=== PATIENT | male | born 1970 | race Hispanic/Latino ===

== ENCOUNTER 2017-05-10 20:42 | Emergency (ER) | payer BC ==
[2017-05-10 21:34] LABS: RAPID GROUP A STREP NEGATIVE (NEGATIVE)
== END 2017-05-10 21:57 | disposition home or self-care (01) ==
LOC: EDH 20:42
DX: J10.1 Influenza due to other identified influenza virus with other respiratory manifestations (principal); I10 Essential (primary) hypertension; M06.9 Rheumatoid arthritis, unspecified; E07.9 Disorder of thyroid, unspecified
CPT/HCPCS: 87804; 87880

== ENCOUNTER 2018-07-06 16:38 | Inpatient (IN) | payer BC, OTHER ==
[~2018-07-06] VITALS: Ht 177.8 cm; Wt 53.5 kg
[2018-07-06 17:21] LABS: BASOPHILS % (AUTO) 0.6 % (0.0-5.0); EOSINOPHILS % (AUTO) 1.6 % (0.0-8.0); HEMATOCRIT 41.6 % (42-54); LYMPHOCYTES % (AUTO) 12.8 % (21.0-51.0); MEAN CORPUSCULAR HEMOGLOBIN 30.2 pg (27.0-33.0); MEAN CORPUSCULAR HGB CONC 34.6 g/dL (32.0-36.0); MEAN CORPUSCULAR VOLUME 87.5 fL (79-99); MONOCYTES % (AUTO) 6.5 % (3.0-13.0); NEUTROPHILS % (AUTO) 78.5 % (40.0-77.0); PLATELET COUNT (AUTO) 214 K/uL (130-400); RED BLOOD CELL COUNT(AUTO) 4.75 MIL/uL (4.50-6.20); RED CELL DISTRIBUTION WIDTH 12.7 % (11.0-15.5); WHITE BLOOD COUNT (AUTO) 6.8 K/uL (4.8-10.8)
[2018-07-06 17:33] LABS: CREATININE 1.7 mg/dL (0.5-1.5); POTASSIUM 3.7 mmol/L (3.5-5.1)
[2018-07-06] MEDS ORDERED: ASPIRIN 325 MG TABLET ONE (17:41)
[2018-07-06] MEDS ORDERED: NITROGLYCERIN 1GM/1 INCH PACKET TD ONE (17:42)
[2018-07-06 17:46] LABS: ALBUMIN 3.5 g/dL (3.5-5.0); BILIRUBIN,DIRECT 0.1 mg/dL (0.0-0.3); BILIRUBIN,TOTAL 0.4 mg/dL (0.2-1.0); TOTAL PROTEIN, SERUM 7.1 g/dL (6.0-8.3)
[2018-07-06 18:28] LABS: APPEARANCE,URINE Clear (CLEAR); BILIRUBIN,URINE Negative (NEGATIVE); COLOR,URINE Yellow (YELLOW); GLUCOSE, URINE (UA) Negative (NEGATIVE); KETONES,URINE Negative (NEGATIVE); LEUKOCYTE ESTERASE ,URINE Negative (NEGATIVE); NITRATE,URINE Negative (NEGATIVE); OCCULT BLOOD,URINE Negative (NEGATIVE); PROTEIN,URINE POS 2+ mg/dL (NEGATIVE)
[2018-07-06] MEDS ORDERED: SODIUM CHLORIDE 0.9% 1000ML 1,000 ML IV ONE (18:43)
[2018-07-06 19:03] LABS: AMPHET/METH SCREEN,URINE NEGATIVE (NEGATIVE); BARBITURATE SCREEN, URINE NEGATIVE (NEGATIVE); BENZODIAZEPINES SCREEN,URINE NEGATIVE (NEGATIVE); CANNABINOID SCREEN,URINE NEGATIVE (NEGATIVE); COCAINE SCREEN,URINE POSITIVE (NEGATIVE); OPIATE SCREEN,URINE NEGATIVE (NEGATIVE); PHENCYCLIDINE SCREEN,URINE NEGATIVE (NEGATIVE)
[2018-07-06 19:19] LABS: BACTERIA,URINE Few /HPF (None Seen); MUCUS,URINE Rare LPF (None Seen); RBC,URINE 0-1 /HPF (0-1); SQUAMOUS EPITHELIAL CELL,UR Rare /HPF (0-2); WBC,URINE 0-1 /HPF (0-1)
[2018-07-06] MEDS ORDERED: NITROGLYCERIN 1GM/1 INCH PACKET TD SCH (19:45)
[2018-07-06] MEDS ORDERED: MORPHINE SULFATE 4 MG/1ML SYG IV PRN (19:45)
[2018-07-06] MEDS ORDERED: ONDANSETRON HCL 4 MG/2 ML VIAL IV PRN (19:45)
[2018-07-06] MEDS ORDERED: ACETAMINOPHEN 325 MG TAB PO PRN (19:45)
[2018-07-06] MEDS ORDERED: MORPHINE SULFATE 2 MG/ML 1ML SYG IV PRN (19:45)
[2018-07-06] MEDS ORDERED: HYDRALAZINE HCL 20 MG/ML VIAL IV PRN (19:45)
[2018-07-06] MEDS ORDERED: ENOXAPARIN SODIUM 30 MG/0.3 ML SQ SCH (21:00)
[2018-07-06] MEDS ORDERED: METOPROLOL TARTRATE 25 MG TAB PO SCH (21:00)
[2018-07-06] MEDS ORDERED: LORAZEPAM 2 MG/ML 1 ML VIAL IVP ONE (21:15)
[2018-07-06 22:37] LABS: MYOGLOBIN 304 ng/mL (10-92); TROPONIN I < 0.04 ng/mL (0.00-0.06)
[2018-07-06 22:43] LABS: CREATINE KINASE, TOTAL 499 U/L (21-232)
[2018-07-06] MEDS ORDERED: LORAZEPAM 2 MG/ML 1 ML VIAL ONE (23:00)
[2018-07-06] MEDS: SODIUM CHLORIDE 0.9% 1000ML 1,000 ML IV SCH (23:06)
[2018-07-06] MEDS: FAMOTIDINE/PF 20 MG/2 ML VIAL IV SCH (23:10)
[2018-07-06 23:58] VITALS: BP 172/94
[2018-07-07 02:05] LABS: TROPONIN I 0.05 ng/mL (0.00-0.06)
[2018-07-07] MEDS: SODIUM CHLORIDE 0.9% 1000ML 1,000 ML IV SCH (02:09)
[2018-07-07 04:00] VITALS: BP 160/103
[2018-07-07 06:00] LABS: TROPONIN I 0.05 ng/mL (0.00-0.06)
[2018-07-07 07:53] VITALS: BP 173/102
[2018-07-07] MEDS: FAMOTIDINE/PF 20 MG/2 ML VIAL IV SCH (08:16)
[2018-07-07] MEDS: ACETAMINOPHEN 325 MG TAB PO PRN ×2 (08:20→14:28)
[2018-07-07] MEDS ORDERED: FAMOTIDINE/PF 20 MG/2 ML VIAL IV SCH ×2 (08:32→09:00)
[2018-07-07] MEDS: LOSARTAN 50 MG TABLET PO SCH ×2 (08:39→08:44)
[2018-07-07] MEDS: HYDROCHLOROTHIAZIDE 25 MG TABLET PO SCH ×2 (08:39→08:44)
[2018-07-07] MEDS: DILTIAZEM HCL 60 MG TABLET PO SCH ×2 (08:39→14:28)
[2018-07-07] MEDS ORDERED: ASPI-555 PO (08:48)
[2018-07-07] MEDS ORDERED: LOSA50TA2 PO (08:48)
[2018-07-07] MEDS ORDERED: HYDR25TA PO (08:48)
[2018-07-07] MEDS ORDERED: ENOXAPARIN SODIUM 30 MG/0.3 ML SQ SCH (09:00)
[2018-07-07] MEDS ORDERED: ASPIRIN 325 MG TABLET PO SCH (09:00)
[2018-07-07 11:16] VITALS: BP 151/84
[2018-07-07] MEDS ORDERED: DILTIAZEM HCL 60 MG TABLET PO SCH (14:00)
--- NOTE | 2018-07-07 16:14 | NUR ---
DCP CM met with pt discussed dc plans. Pt is independent, lives at home with spouse. Denies any equipments/services. Pt feels safe to go, still drives and works, spouse able to assist with transportation and needs. DC plan to home once stable. CM to cont to follow up. Addendum: 07/07/18 at 1621 by LUIS A RICE LVN CM Amended: Links added.
--- NOTE | 2018-07-07 16:15 | NUR ---
Discharge teaching competed in the room with pt and . Emphasis on dx, s/s to monitor for, and when to seek emergency care / dial 911. Pt instructed to take and record blood pressure daily and report to MD. Pt is to follow up with his primary MD (Dr. Ansari) within 7 days. Attempted to call for appt, but answering machine encountered. Instructed pt to call on the next business day for appt within 7 days. Written rx for hctz, asa 81, and Cozaar given to pt. Discussed purpose, route, frequency, and duration of treatment, as well as side effects and adverse effects. PIV removed from r forearm, tip intact. Dressed w 2x2 and tape after hemostasis. Addressed all questions. Removed tele pack. Pt to get dressed and call when ready for transport to [facility].
--- NOTE | 2018-07-07 16:30 | NUR ---
Pt wheeled to [facility] lobby for discharge home via private car. Pt in stable condition at time of discharge.
== END 2018-07-07 16:34 | disposition home or self-care (01) | DRG 313 ==
LOC: EDH 16:38 → EDHIP 16:39 → 4AH 22:38
PROVIDERS: ADMIT Internal Medicine; ATTEND Internal Medicine
DX: R07.89 Other chest pain (principal); M62.82 Rhabdomyolysis; E03.9 Hypothyroidism, unspecified; F14.90 Cocaine use, unspecified, uncomplicated; I10 Essential (primary) hypertension; M06.9 Rheumatoid arthritis, unspecified; Z71.89 Other specified counseling
CPT/HCPCS: 36415; 71045; 80048; 80076; 80305; 81001; 82550; 83690; 83874; 84484; 85025; 86140; 93005; G0378; J1650; J2060; J3490; J7030